=== PATIENT | male | born 1960 | race African-American/Black ===

== ENCOUNTER 2024-05-04 16:42 | Emergency (ER) | payer MEDICAID ==
[~2024-05-04] VITALS: Ht 182.9 cm; Wt 86.0 kg
[2024-05-04 16:46] VITALS: BP 163/83; PULSE 88; RESP 20; TEMP 98.4; O2SAT 100
[2024-05-04] MEDS ORDERED: IPRATROPIUM BROMIDE (0.02%) 0.5MG/2.5ML NEB HHN STA (16:56)
[2024-05-04] MEDS ORDERED: PREDNISONE 20MG TABLET PO STA (16:56)
[2024-05-04] MEDS ORDERED: ALBUTEROL (0.083%) 2.5MG/3ML NEB HHN SCH (17:00)
== END 2024-05-04 17:05 | disposition left against medical advice (07) ==
LOC: ER 16:42 → EDBEDREQ 17:19 → CANBEDREQ 17:28
DX: R07.89 Other chest pain (principal)
CPT/HCPCS: 93005; 99283

== ENCOUNTER 2025-06-13 07:21 | Emergency (ER) | payer MEDICAID ==
[~2025-06-13] VITALS: Ht 190.5 cm; Wt 91.0 kg
[2025-06-13] MEDS: METHYLPREDNISOLONE SOD SUCC 125MG/2ML (ACT-O-VIAL) IV ONE (07:57)
[2025-06-13 08:06] LABS: BASOPHILS % 0.6 % (0.0-2.0); EOSINOPHILS % 3.9 % (0.0-5.0); HEMATOCRIT. 45.2 % (42.0-52.0); HEMOGLOBIN. 14.5 g/dL (14.0-18.0); LYMPHOCYTES % 38.5 % (20.0-50.0); MEAN PLATELET VOLUME 9.2 fl (7.4-10.4); MONOCYTES % 7.2 % (2.0-8.0); NEUTROPHILS % 49.8 % (40.0-76.0); PLATELET 230 x1000/uL (130-400); RED BLOOD CELL COUNT 5.57 mill/uL (4.7-6.1); RED CELL DISTRIBUTION WIDTH 16.1 % (11.6-14.6)
[2025-06-13 08:21] LABS: INR 1.1
[2025-06-13 08:23] VITALS: PULSE 72; RESP 18; O2SAT 100
[2025-06-13 08:23] LABS: CREATININE 1.2 mg/dL (0.6-1.3)
[2025-06-13] MEDS: ALBUTEROL (0.083%) 2.5MG/3ML NEB HHN SCH (08:23)
[2025-06-13] MEDS: IPRATROPIUM BROMIDE (0.02%) 0.5MG/2.5ML NEB HHN SCH (08:23)
[2025-06-13 08:24] LABS: UREA NITROGEN BLOOD 11 mg/dL (9-23)
[2025-06-13 08:25] LABS: TROPONIN I HIGH SENSITIVITY 5 ng/L (3.0-53)
[2025-06-13 08:58] VITALS: PULSE 61; RESP 14; O2SAT 100
[2025-06-13 09:29] VITALS: PULSE 68; RESP 15; O2SAT 100
[2025-06-13] MEDS ORDERED: P50 PO (09:59)
[2025-06-13 10:13] VITALS: BP 130/78; PULSE 82; RESP 17; TEMP 36.8; O2SAT 100
== END 2025-06-13 10:14 | disposition home or self-care (01) ==
LOC: ER 07:21 → CMPBEDREQ 06-14 08:01
DX: J45.901 Unspecified asthma with (acute) exacerbation (principal); F41.9 Anxiety disorder, unspecified; Z98.890 Other specified postprocedural states
CPT/HCPCS: 80048; 85025; 85610; 85730; 84484; 36415; 71045; 94640; 93005; 96374; 99285; J2919; Z7610 ×3; 94070; 94664